=== PATIENT | female | born 1955 | race Caucasian/White ===

== ENCOUNTER → 2017-04-22 | Outpatient (CLI) | payer BC | LOC: FIMAGING 14:24 | PROVIDERS: ATTEND Internal Medicine | DX: Z12.31 Encounter for screening mammogram for malignant neoplasm of breast (principal) | CPT/HCPCS: G0202 ==

== ENCOUNTER → 2017-05-06 | Outpatient (CLI) | payer BC, OTHER | LOC: FIMAGING 12:15 | PROVIDERS: ATTEND Internal Medicine | DX: N63.21 Unspecified lump in the left breast, upper outer quadrant (principal) ==

== ENCOUNTER → 2017-05-20 | Outpatient (CLI) | payer BC, OTHER ==
[~2017-05-20] MED LIST: BUPIVACAINE 0.5% 10 ML SDV ONE; LIDOCAINE 1% 300 MG/30 ML SDV ONE; THROMBIN (BOVINE) 5,000 UNIT VIAL TP ONE
== END ==
LOC: FIMAGING 07:02
PROVIDERS: ATTEND Internal Medicine
PROC: 0HBU3ZX Excision of Left Breast, Percutaneous Approach, Diagnostic (ICD-10-PCS; principal; 2017-05-20)
DX: C50.912 Malignant neoplasm of unspecified site of left female breast (principal)

== ENCOUNTER 2017-06-02 10:33 | Day surgery (SDC) | payer BC, OTHER ==
[2017-06-02] MEDS ORDERED: LR 1,000 ML IV ONE (10:46)
[2017-06-02] MEDS ORDERED: BUPIVACAINE/EPI 0.5% 30 ML SDV ONE (12:56)
[2017-06-02] MEDS ORDERED: LIDOCAINE 1% 300 MG/30 ML SDV ONE (12:56)
--- NOTE | 2017-06-02 13:08 | PDHPUP ---
History & Physical Update H&P update statement: This history and physical update is based on an assessment of the patient which was completed after admission or registration (within 24 hours), but prior to the surgery/procedure. H&P update: H&P reviewed & patient examined, no change in patient's condition since H&P completed
[2017-06-02] MEDS ORDERED: PROPOFOL/EMULSION 500 MG/50 ML BOTTLE IV ONE (13:15)
[2017-06-02] MEDS ORDERED: fentaNYL 100 MCG/2 ML INJ ONE ×2 (13:15→15:11)
[2017-06-02] MEDS ORDERED: MIDAZOLAM 2 MG/2 ML VIAL ONE (13:15)
[2017-06-02] MEDS ORDERED: ONDANSETRON 4 MG/2 ML VIAL IVP PRN (13:51)
[2017-06-02] MEDS ORDERED: OXYCODONE/APAP 5/325 TAB PO PRN (13:51)
[2017-06-02] MEDS ORDERED: HYDROCODONE/APAP 5/325 TAB PO PRN (13:51)
[2017-06-02] MEDS ORDERED: PROMETHAZINE HCL 25 MG/ML INJ IVP PRN (13:51)
[2017-06-02] MEDS ORDERED: METOCLOPRAMIDE 10 MG/2 ML VIAL IVP PRN (13:51)
[2017-06-02] MEDS ORDERED: ACETAMINOPHEN 500 MG TAB PO PRN (13:51)
[2017-06-02] MEDS ORDERED: DEXAMETHASONE 4 MG/ML VIAL IVP PRN (13:51)
[2017-06-02] MEDS ORDERED: NALOXONE HCL 0.4 MG/ML INJ IVP PRN (13:51)
[2017-06-02] MEDS ORDERED: LR 500 ML IV PRN (13:51)
[2017-06-02] MEDS ORDERED: ALBUTEROL 3 ML DEYVIAL IH PRN (13:51)
[2017-06-02] MEDS ORDERED: MEPERIDINE 25 MG/ML SYR IVP PRN (13:51)
--- NOTE | 2017-06-02 13:51 | PDANEPAE ---
ANE Past Medical History - Cardiovascular History Hx Hypertension: No Hx Arrhythmias: No Hx Chest Pain: No Cardiovascular History Comment: BP/HR runs low, PT TEMP ALSO RUNS LOW - Pulmonary History Hx Asthma/Reactive Airway Disease: Yes Hx Sleep Apnea: No Sleep Apnea Screening Result - Last Documented: Negative Pulmonary History Comment: ASTHMA TRIGGERED ALLERGIES - Neurologic History Hx Cerebrovascular Accident: No Hx Seizures: No Hx Dementia: No - Endocrine History Hx Diabetes: No - Renal History Hx Renal Disorders: No - Liver History Hx Hepatic Disorders: No - Neurological & Psychiatric Hx Hx Neurological and Psychiatric Disorders: No - Cancer History Hx Cancer: Yes Cancer History Comment: NEW DIAGNOSIS BREAST CA - Congenital Disorder History Hx Congenital Disorders: No - GI History Hx Gastrointestinal Disorders: Yes Gastrointestinal History Comment: CONSTIPATION - Other Health History Other Health History: BLACK & BLUE SPOT MIDDLE OF BACK - Chronic Pain History Chronic Pain: No - Surgical History Prior Surgeries: hysterectomy ANE Review of Systems Review of Systems: - Exercise capacity METS (RN): 5 METS ANE Patient History - Allergies Allergies/Adverse Reactions: No Known Allergies Allergy (Verified 05/07/17 13:43) - Home Medications Home Medications: Fluticasone/Salmeterol [Advair 250-50 Diskus] 10/04/12 [Last Taken 06/01/17] Herbals/Supplements -Info Only 10/04/12 [Last Taken 05/26/17] Multivit-Min/FA/Lycopene/Lut [Centrum Silver Tablet] 10/04/12 [Last Taken 05/26] [place]-3 Fatty Acids/Fish Oil [Fish Oil Conc 1,000 mg Softgel] 10/04/12 [Last Taken 05/26/17] Pharmacy Completed 10/04/12 [Last Taken 10/04/12 16:46] Sulfacet Sod/Sulfur/Witch Haz [Plexion Sct Cream] 10/04/12 [Last Taken 09/30/12 ] Tretinoin/Emollient Base [[place] 0.02% Cream] 10/04/12 [Last Taken 09/23/12] metroNIDAZOLE [Metrocream] 10/04/12 [Last Taken 05/03/17] - NPO status NPO Since - Liquids (Date): 06/02/17 NPO Since - Liquids (Time): 07:15 NPO Since - Solids (Date): 06/01/17 NPO Since - Solids (Time): 23:15 - Smoking Hx Smoking Status: Never smoked - Family Anes Hx Family Hx Anesthesia Complications: none ANE Labs/Vital Signs - Vital Signs Blood Pressure: 114/78 Heart Rate: 53 Respiratory Rate: 16 O2 Sat (%): 98 Height: 172.72 cm Weight: 73.936 kg ANE Physical Exam - Airway Neck exam: FROM Mallampati Score: Class 1 Mouth exam: normal dental/mouth exam - Pulmonary Pulmonary: no respiratory distress, no rales or rhonchi, clear to auscultation - Cardiovascular Cardiovascular: regular rate and rhythym, no murmur, rub, or gallop - ASA Status ASA Status: II ANE Anesthesia Plan Anesthesia Plan: GA w LMA
[2017-06-02] MEDS ORDERED: PROPOFOL 200 MG/20 ML VIAL ONE (14:12)
[2017-06-02] MEDS: fentaNYL 100 MCG/2 ML INJ IVP PRN ×2 (15:12→15:25)
[2017-06-02] MEDS ORDERED: OXYCODONE/APAP 5/325 TAB ONE (15:23)
--- NOTE | 2017-06-02 16:02 | POSTOPPROG ---
Post Op Note Date of Operation: 06/02/17 Surgeon: Humza Franklin Anesthesiologist: Dr. Real Anesthesia: GET(General Endotracheal) Pre-op Diagnosis: L breast cancer Post-op Diagnosis: Same Procedure: L partial mastectomy with slnb Inf/Abcess present in the surg proc area at time of surgery?: No EBL: Minimal Specimen(s): breast, margins, nodes
[2017-06-02 16:19] VITALS: BP 97/57; PULSE 54; RESP 16; TEMP 97.5; O2SAT 100
--- NOTE | 2017-06-02 22:13 | GOP ---
[f rep st] OPERATIVE REPORT DATE OF OPERATION: 06/02/2017 SURGEON: Humza Franklin MD ANESTHESIA: General. ANESTHESIOLOGIST: Rufina Real MD PREOPERATIVE DIAGNOSIS: Left breast carcinoma. POSTOPERATIVE DIAGNOSIS: Left breast carcinoma. PROCEDURE PERFORMED: Left partial mastectomy with ultrasound localization with axillary sentinel nod e biopsy. FINDINGS: INDICATIONS: A 62-year-old female with an incidentally identified left breast invasive ductal carcin camelia on routine mammographic evaluations. She is undergoing a partial mastectomy with axillary sentin el node sampling at this time. Risks and benefits were explained of bleeding, infection, tumor recur rence, need for additional margin resection, cosmetic deformity, arm edema, nerve injury, indications for completion lymph node dissection. All questions were answered. She desires to proceed. DESCRIPTION OF PROCEDURE: Upon returning from lymphoscintigraphy, general anesthesia was induced. T he left breast and axilla were infiltrated with 1% lidocaine and 0.5% Marcaine. The left upper outer quadrant lesion was identified using intraoperative ultrasonography. A 3 o'clock circumareolar inci armani was created using electrocautery. The breast was dissected out toward the radiographically iden tified mass. Using electrocautery and sharp dissection, the mass was completely excised. The mass w as easily centered directly within the intraoperative specimen. Intraoperative ultrasonography showe d evidence of clip inclusion. There were multiple centimeters of normal-appearing fibrofatty breast tissue surrounding the prior biopsy site hematoma. The anterior and posterior margins were both clos est. The additional margins were obtained radially. The subcutaneous tissues were completely skelet onized beneath the skin and sent as a final anterior margin. Portions of the pectoralis major muscle and fascia were included as a final posterior margin. Satisfactory hemostasis was assured. Multipl e hemoclips were placed circumferentially. The defect was closed in layers using absorbable suture. Attention was directed to the left axilla. A low axillary incision was created. The axillary fat pl ane was identified. Two hot nodes measuring 880 units on the gamma counter and 180 units were identi fied. The background activity was all negligible being less than 30 units. No suspicious palpable a denopathy was present. Satisfactory hemostasis was assured. The axilla was closed in layers with ab sorbable suture followed by Dermabond. The patient was taken to Recovery uneventfully. /[id number]/MODL
== END 2017-06-02 16:40 | disposition home or self-care (01) ==
LOC: FSGY 10:33
PROVIDERS: ATTEND Surgery
PROC: 0HBT0ZZ Excision of Right Breast, Open Approach (ICD-10-PCS; principal; 2017-06-02 13:00)
PROC: 07B50ZX Excision of Right Axillary Lymphatic, Open Approach, Diagnostic (ICD-10-PCS; principal; 2017-06-02 13:00)
DX: C50.412 Malignant neoplasm of upper-outer quadrant of left female breast (principal); Z80.3 Family history of malignant neoplasm of breast; Z17.0 Estrogen receptor positive status [ER+]; Z80.1 Family history of malignant neoplasm of trachea, bronchus and lung
CPT/HCPCS: 19301; 38500; A9520; J0171; J2250; J2704; J3010

== ENCOUNTER → 2018-04-27 | Outpatient (CLI) | payer OTHER | LOC: FIMAGING 12:32 | PROVIDERS: ATTEND Internal Medicine | DX: Z12.31 Encounter for screening mammogram for malignant neoplasm of breast (principal); Z85.3 Personal history of malignant neoplasm of breast ==